=== PATIENT | female | born 1975 | race Hispanic/Latino ===

== ENCOUNTER 2017-11-05 08:59 | Outpatient (CLI) | payer OTHER | END 2017-11-05 09:00 | disposition home or self-care (01) | LOC: BICMAMMO 08:59 | PROVIDERS: ATTEND Obstetrics & Gynecology | DX: Z12.31 Encounter for screening mammogram for malignant neoplasm of breast (principal) | CPT/HCPCS: 77063; 77067 ==

== ENCOUNTER 2018-04-04 13:35 | Outpatient (CLI) | payer OTHER ==
[2018-04-04 15:20] LABS: Hemoglobin 12.7 g/dL (12.0-16.0); Mean Corpuscular HGB CONC 33.6 g/dL (32.0-36.0); Mean Corpuscular Hemoglobin 27.6 pg (27.0-31.0); Mean Corpuscular Volume 82.3 fL (78.0-98.0); Mean Platelet Volume 9.9 fL (7.4-10.4); Platelet Count 198 thou/uL (130-400); White Blood Cell (WBC) Count 5.9 thou/uL (4.8-10.8)
[2018-04-04 15:33] LABS: BHCG - Serum Negative (NEGATIVE); Pregs Control Background? CLEAR/WHITE (CLR/WHITE); Pregs Control Bar Appear? YES (CONTROL BAR)
== END 2018-04-04 13:36 | disposition home or self-care (01) ==
LOC: LABBT 13:35
PROVIDERS: ATTEND Obstetrics & Gynecology
DX: Z01.812 Encounter for preprocedural laboratory examination (principal); N94.6 Dysmenorrhea, unspecified; N39.3 Stress incontinence (female) (male); N93.9 Abnormal uterine and vaginal bleeding, unspecified
CPT/HCPCS: 84703; 85027; 86850; 86900; 86901

== ENCOUNTER 2018-04-07 05:53 | Day surgery (SDC) | payer OTHER ==
[2018-04-04 14:05] VITALS: BMI 35.1
[2018-04-07] MEDS ORDERED: Famotidine/PF 20 mg/2ml Vial ONE (06:14)
[2018-04-07] MEDS ORDERED: CeleCOXIB 100 MG CAP ONE (06:15)
[2018-04-07] MEDS ORDERED: Gabapentin 300 MG CAP ONE (06:16)
[2018-04-07] MEDS ORDERED: CEFAZOLIN/Water 2 GM/20 ML SYRINGE ONE (06:16)
[2018-04-07] MEDS ORDERED: Bupivacaine HCl 0.5%/Epinephrine 1:200,000/PF 30 ml Vial ONE (06:29)
[2018-04-07] MEDS ORDERED: Lidocaine 1% w/Epinephrine 1:100K 30 ML VIAL ONE (06:29)
[2018-04-07] MEDS ORDERED: Fentanyl 100 MCG/2 ML VIAL ONE ×2 (06:36→10:10)
[2018-04-07] MEDS ORDERED: Midazolam HCl 2 mg/2 ml Vial ONE (07:02)
[2018-04-07] MEDS ORDERED: Meperidine HCl/PF 25 MG/ML VIAL SLOW IVP PRN (09:30)
[2018-04-07] MEDS ORDERED: Promethazine HCl 25 MG/ML VIAL IM PRN ×2 (09:30→10:03)
[2018-04-07] MEDS ORDERED: Promethazine HCl 25 MG/ML VIAL SLOW IVP PRN (09:30)
[2018-04-07] MEDS ORDERED: Ondansetron HCl/PF 4 MG/2 ML Vial IVP PRN ×2 (09:30→10:03)
[2018-04-07] MEDS ORDERED: HYDROmorphone 2 MG/ML VIAL SLOW IVP PRN (09:30)
[2018-04-07] MEDS ORDERED: Ibuprofen 800 MG TAB PO PRN (09:31)
[2018-04-07] MEDS ORDERED: Morphine 4 MG/ML VIAL SLOW IVP PRN (10:03)
[2018-04-07] MEDS ORDERED: HYDROcodone/Acetaminophen 5/325 mg Tablet PO PRN (10:03)
[2018-04-07] MEDS ORDERED: diphenhydrAMINE 25 MG CAP PO PRN (10:03)
[2018-04-07] MEDS ORDERED: Bisacodyl 10 MG SUPP PR PRN (10:03)
[2018-04-07] MEDS ORDERED: Simethicone Chewable 80 MG TAB PO PRN (10:03)
[2018-04-07] MEDS ORDERED: Ropivacaine 0.2% 550 ML 550 ML NERVE BLCK SCH (10:11)
--- NOTE | 2018-04-07 10:52 | OP ---
DATE OF PROCEDURE: 04/07/2018 PREOPERATIVE DIAGNOSES: 1. Abnormal uterine bleeding. 2. Uterine fibroids. 3. History of anemia. 4. Uncomplicated stress urinary incontinence. POSTOPERATIVE DIAGNOSES: 1. Abnormal uterine bleeding. 2. Uterine fibroids. 3. History of anemia. 4. Uncomplicated stress urinary incontinence. PROCEDURE: 1. Robotic-assisted total laparoscopic hysterectomy with bilateral salpingectomy. 2. Advantage Fit retropubic midurethral sling. 3. Cystoscopy. SURGEON: Monica Mejia D.O. CRANKSHAFT STRAIGHTENER: Maddi Joshi M.D. ANESTHESIA: General. COMPLICATIONS: None. ESTIMATED BLOOD LOSS: 50 mL. URINE OUTPUT: 600 mL. FINDINGS: Normal external genitalia, normal vaginal and cervical epithelium, enlarged fibroid uterus approximately 12 cm. Normal appearing bilateral fallopian tubes and ovaries, normal bladder mucosa without evidence of perforation, bilateral ureteral peristalsis and efflux. INDICATIONS FOR THE PROCEDURE: Ms. Maxine Griffiths is a 42-year-old who presented to clinic with a longstanding history of abnormal uterine bleeding secondary to 5 cm intramural uterine fibroid. The patient underwent an endometrial biopsy with benign pathology and her Pap smear was also normal. The patient was counseled on treatment options and she had failed medical therapy previously and desired definitive surgical treatment and was planned for a robotic assisted total laparoscopic hysterectomy. The patient preferred ovarian conservation. The patient also had symptoms of uncomplicated stress urinary incontinence and was counseled on treatment options, she elected to have surgical treatment with a retropubic mid urethral sling. The patient was counseled on risks, benefits, alternatives, and indications for each procedure. PROCEDURE IN DETAIL: The patient was brought to the operating room and she was placed under general anesthesia. The patient was placed in dorsal lithotomy position using Phil stirrups. She was prepped and draped in the sterile fashion. An official timeout was performed. She was given Ancef for surgical prophylaxis. A single-sided speculum was placed in the vagina. Anterior aspect of the cervix was grasped using single tooth tenaculum and the cervix was sequentially dilated. The uterus was sounded to approximately 12 cm. A PRINCESS uterine manipulator was inserted using a 12 cm length and 4 cm cup and was appropriately secured to the ectocervix. The Miller catheter was placed. The bladder was completely drained. Gloves were exchanged and attention was turned to the abdominal portion. A supraumbilical abdominal incision was made and the Veress needle was placed into the peritoneal cavity noting a normal pressure. The peritoneal cavity was insufflated using carbon dioxide. The 12 mm trocar was then inserted. The patient was placed in Trendelenburg position. The anatomy was evaluated, noting the findings above. Additional assistant restaurant general manager ports were placed, 2 ports placed on the right aspect of the abdomen and 1 placed on the left. All were placed using local anesthetic and under direct visualization. The robot was then appropriately docked to the patient and the robotic instruments were inserted using a monopolar scissors and bipolar fenestrated forceps. Hysterectomy was begun on the left aspect, the left salpingectomy was performed working distally to proximally removing the entire fallopian tube. The round ligament was then coagulated and transected. The broad ligament was then entered, the anterior aspect of the broad ligament was undermined and transected to allow inferior reflection of the bladder, the utero-ovarian vessels were then coagulated and transected. The posterior leaf of the peritoneum was then undermined and transected down towards the level of the uterosacral ligament. The left uterine vessels were skeletonized. Attention was turned over to the right aspect of the hysterectomy. The right salpingectomy was performed working distally to proximally. The right round ligament was then coagulated and transected allowing entrance into the broad ligament on the right aspect. The anterior leaf of the broad ligament was undermined and transected allowing anterior reflection of the bladder on the right side as well. The right utero-ovarian ligament was then coagulated multiple times and transected. The posterior leaf of the peritoneum was undermined and transected down towards the level of the uterosacral ligament. The course of the right ureter was identified prior to this portion. The course of the left ureter was difficult to fully evaluate. The bladder dissection was performed anteriorly using meticulous dissection. The right uterine vessels were coagulated multiple times and transected creating hemostasis. Attention was turned over to the left aspect, the left uterine vessels were also coagulated multiple times and transected creating hemostasis. The colpotomy was then performed in circumferential fashion until the cervical and vaginal tissue were . The uterus and cervix were then delivered vaginally and the PRINCESS manipulator was also removed. The pelvis was irrigated and cleared of all clot and debris. The vaginal cuff was closed in a running fashion using 1 Stratafix suture. The vaginal cuff was hemostatic after closure, it did require some areas of coagulation along the cuff for hemostasis. The pelvis was again irrigated and cleared of all clot and debris. All pedicle sites and the vaginal cuff were evaluated and hemostatic and the pressure was decreased also noting hemostasis. The ON-Q pump was then inserted and placed in the pelvic cavity. The instruments were then removed. The robot was undocked from the patient. The patient was taken out of Trendelenburg position. The abdomen was deflated and the trocars were removed. The midline supraumbilical port was closed using 0 Vicryl on the fascia and the skin was closed using 4-0 Vicryl and Dermabond. Attention was then turned down to the vaginal portion. The sites for the sling were marked 2 cm lateral and just above the pubic symphysis. The vaginal epithelium was then grasped using Allis clamps and lidocaine with epinephrine was injected at the incision site for the sling. A small incision was made approximately 1-2 cm below the urethra and 1-2 cm in length. Metzenbaum scissors were then used to dissect the plane of the direction of the retropubic sling. The guidewire catheter was then placed within the Miller. The Advantage Fit sling was then performed first on the patient's right aspect, careful to hug the guidance needle around the pubic symphysis, perforating the skin just where it was marked above the pubic symphysis and then the left side of the sling was also placed using the same technique. The needle was then removed. A cystoscopy was performed noting no perforation or damage to the bladder and bilateral ureteral efflux. The sleeves of the sling were then pulled with tension until the sling was approximated to the urethra. A Centeno scissors was used to prevent over tightening of the sling. The plastic guides were then removed and the sling was cut at the level of skin. The vaginal epithelium was closed in a running fashion using 3-0 Vicryl. The miller was placed. The vagina was evaluated and noted to be hemostatic. The patient was then placed back in supine position. She was extubated without difficulty and transferred to recovery in hemodynamically stable condition. There were no complications and the patient tolerated the procedure well. All counts were correct x2. MTDD
[2018-04-07] MEDS: Lactated Ringer's 1,000 ML IV SCH ×2 (11:51→19:15)
[2018-04-07] MEDS: Ibuprofen 800 MG TAB PO SCH ×2 (14:16→21:34)
[2018-04-07] MEDS: HYDROcodone/Acetaminophen 5/325 mg Tablet PO PRN ×3 (14:16→22:34)
[2018-04-07 20:44] VITALS: TEMP 97.9
[2018-04-08] MEDS: Ibuprofen 800 MG TAB PO SCH (05:29)
[2018-04-08] MEDS: Lactated Ringer's 1,000 ML IV SCH (05:36)
[2018-04-08 05:51] LABS: #Lymphocytes 1.2 thou/uL (1.20-3.40); #Monocytes 0.5 thou/uL (0.11-0.59); #Neutrophils 8.4 thou/uL (1.40-6.50); %Basophils 0.2 % (0.0-1.0); %Eosinophils 0.1 % (0.0-10.0); %Lymphocytes 12.2 % (21.0-51.0); %Monocytes 5.3 % (0.0-10.0); %Neutrophils 82.2 % (42.0-75.0); Hemoglobin 11.2 g/dL (12.0-16.0); Mean Corpuscular Hemoglobin 27.2 pg (27.0-31.0); Mean Corpuscular Volume 82.3 fL (78.0-98.0); Mean Platelet Volume 9.7 fL (7.4-10.4); Platelet Count 179 thou/uL (130-400); RBC Distribution Width 13.8 % (11.5-14.5); Red Blood Cell (RBC) Count 4.12 mill/uL (4.20-5.40); White Blood Cell (WBC) Count 10.2 thou/uL (4.8-10.8)
[2018-04-08 06:01] LABS: ALT (SGPT) 11 U/L (8-55); AST (SGOT) 10 U/L (5-34); Albumin 3.4 g/dL (3.5-5.0); Alkaline Phosphatase 59 U/L (40-150); Anion Gap 10 mmol/L (10-20); BUN (Urea Nitrogen) 7 mg/dL (7.0-18.7); Bilirubin, Total 0.8 mg/dL (0.2-1.2); Calc. Creatinine Clearance 133 mL/min (70-130); Calcium 8.5 mg/dL (7.8-10.44); Carbon Dioxide 23 mmol/L (22-29); Chloride 108 mmol/L (98-107); Estimated GFR-MDRD 80; Globulin 2.6 g/dL (2.4-3.5); Glucose 120 mg/dL (70-105); Potassium 3.8 mmol/L (3.5-5.1); Sodium 137 mmol/L (136-145)
--- NOTE | 2018-04-08 11:22 | PRG ---
DATE OF SERVICE: 04/08/2018 HPI: Postoperative day #1, status post robotic-assisted total laparoscopic hysterectomy with bilateral salpingectomy, Retropubic Advantage Fit, mid urethral sling, and cystoscopy SUBJECTIVE: The patient reports [id number] pain, controlled with oral pain medications. She is passing flatus, tolerating oral intake, and ambulating without difficulty. The patient had a Charles catheter replaced yesterday evening due to continued urinary retention after her surgery. Otherwise, denies any complaints. OBJECTIVE: VITAL SIGNS: Stable. GENERAL: In no acute distress. CARDIOVASCULAR: Regular rate and rhythm. RESPIRATORY: Unlabored breathing. ABDOMEN: Soft and mild distention with appropriate tenderness to palpation. Incisions clean, dry, and intact with Dermabond in place and ON-Q appropriately secured. Normal active bowel sounds times all 4 quadrants. EXTREMITIES: Negative Homans' and negative edema. LABORATORY DATA: Normal hemoglobin and creatinine. Please see laboratory results. ASSESSMENT: Postoperative day #1 status post robotic-assisted total laparoscopic hysterectomy with a bilateral salpingectomy, midurethral sling, and cystoscopy with transient urinary retention. PLAN: We will perform an additional voiding trial this morning with backfilling the bladder and assessing voided urine. She is, otherwise, meeting all requirements for discharge. We will plan to discharge today. QUOC
[2018-04-08 13:32] VITALS: BP 118/70
--- NOTE | 2018-04-09 06:57 | DIS ---
DATE OF ADMISSION: 04/07/2018 DATE OF DISCHARGE: 04/08/2018 ADMISSION AND DISCHARGE PHYSICIAN: Monica Mejia D.O. ADMISSION DIAGNOSIS: Postoperative pain control status post robotic assisted total laparoscopic hyst erectomy with a bilateral salpingectomy and retropubic mid urethral sling and cystoscopy. DISCHARGE DIAGNOSES: Postoperative pain control status post robotic assisted total laparoscopic hyst erectomy with a bilateral salpingectomy, retropubic mid urethral sling and cystoscopy. BRIEF HOSPITAL COURSE: Ms. Griffiths is postoperative day #1, status post robotic assisted total lapar oscopic hysterectomy with a bilateral salpingectomy, retropubic mid urethral sling and cystoscopy for treatment of abnormal uterine bleeding due to uterine fibroids and stress urinary incontinence. The patient's intraoperative and postoperative course have been benign with the exception of a transient urinary retention which has resolved on postoperative day #1. She has passed a voiding trial. Her vital signs are stable. Her laboratory evaluation is within normal limits. She was meeting all requ irements for discharge including voiding, ambulating, tolerating an oral diet, passing flatus and her pain is controlled with oral medications. FOLLOWUP: Follow up in 2 weeks. ACTIVITY RESTRICTIONS: Pelvic rest, no heavy lifting, pushing or pulling for 6 weeks. MEDICATIONS: 1. [place] 5/325 one tablet every 6 hours p.r.n. pain, #30 tablets. 2. Motrin 800 mg 1 tablet every 8 hours p.r.n. pain, #60 tablets. DIET: General. CODE: FULL.
[2018-04-14] MEDS ORDERED: Ergocalciferol 1.25 MG(50,000 UNITS) CAP PO SCH (09:00)
== END 2018-04-08 12:38 | disposition home or self-care (01) ==
LOC: SDC 05:53 → EDSTATUS 10:00 → 3SE 11:16 → SDC 04-08 12:38
PROVIDERS: ATTEND Obstetrics & Gynecology
PROC: 0UT94ZZ Resection of Uterus, Percutaneous Endoscopic Approach (ICD-10-PCS; principal; 2018-04-08)
PROC: 0UT74ZZ Resection of Bilateral Fallopian Tubes, Percutaneous Endoscopic Approach (ICD-10-PCS; principal; 2018-04-08)
PROC: 0TSD0ZZ Reposition Urethra, Open Approach (ICD-10-PCS; principal; 2018-04-08)
DX: D25.2 Subserosal leiomyoma of uterus (principal); N88.8 Other specified noninflammatory disorders of cervix uteri; N39.3 Stress incontinence (female) (male); G89.18 Other acute postprocedural pain; Z79.899 Other long term (current) drug therapy; Z87.891 Personal history of nicotine dependence
CPT/HCPCS: 36415; 51798; 80053; 85025; 88307; 96374; 96375; 96376; A4306; C1781; J0131; J0670; J2001; J2250; J2270; J2795; J3010; Q9968; S0028

== ENCOUNTER 2018-11-11 12:10 | Outpatient (CLI) | payer BC ==
--- NOTE | 2018-11-11 12:46 | MMO ---
Bilateral MAMMO Bilat Screen [facility]. CLINICAL HISTORY: Patient is 42 years old and is seen for screening. The patient has no family history of breast cancer. The patient has no personal history of cancer. VIEWS: The views performed were: bilateral craniocaudal with tomosynthesis and bilateral mediolateral oblique with tomosynthesis. FILMS COMPARED: The present examination has been compared to a prior imaging study performed at [facility] on 11/05/2017. MAMMOGRAM FINDINGS: There are scattered fibroglandular densities. There is a round mass with circumscribed margins seen in the upper-inner region of the right breast. In the left breast, there are no suspicious masses, calcifications or areas of architectural distortion. IMPRESSION: MASS IN THE RIGHT BREAST REQUIRES ADDITIONAL EVALUATION. AN ULTRASOUND EXAM IS RECOMMENDED. THE RESULTS OF THIS EXAM WERE SENT TO THE PATIENT. ACR BI-RADS Category 0 - Incomplete: Need additional imaging evaluation. [facility] will notify the patient of the need for additional imaging services. MAMMOGRAPHY NOTE: 1. A negative mammogram report should not delay a biopsy if a dominant of clinically suspicious mass is present. 2. Approximately 10% to 15% of breast cancers are not detected by mammography. 3. Adenosis and dense breasts may obscure an underlying neoplasm.
== END 2018-11-11 12:11 | disposition home or self-care (01) ==
LOC: BICMAMMO 12:10
PROVIDERS: ATTEND Family Medicine
DX: Z12.31 Encounter for screening mammogram for malignant neoplasm of breast (principal); N63.10 Unspecified lump in the right breast, unspecified quadrant
CPT/HCPCS: 77063; 77067

== ENCOUNTER 2018-11-20 14:48 | Outpatient (CLI) | payer BC ==
--- NOTE | 2018-11-20 15:41 | ULT ---
SONOGRAM RIGHT BREAST LIMITED: HISTORY: Focal asymmetric nodule right breast. COMPARISON: Prior mammograms from 11/11/2018 and 11/05/2017. FINDINGS: Sonographic evaluation of the superior medial aspect of the right breast in the region of mammographi c concern on recent screening exam was performed. Scattered fibroglandular densities are present. N o solid or cystic masses. No suspicious shadowing. Review of the tomographic images from the previous screening exams was made. No spiculation or relia daniel demonstrated suspicious finding. The area of in question is similar on the current tomographic i mages to the previous exam. IMPRESSION: No evidence of underlying mass within the right breast in the region of concern on the screening mamm ogram. BIRADS category 2. Benign findings. Suggest routine mammographic followup. POS: GIOVANNY
== END 2018-11-20 14:49 | disposition home or self-care (01) ==
LOC: BICULT 14:48
PROVIDERS: ATTEND Family Medicine
DX: N63.12 Unspecified lump in the right breast, upper inner quadrant (principal)

== ENCOUNTER 2020-11-25 09:03 | Outpatient (CLI) | payer BC | END 2020-11-25 09:04 | disposition home or self-care (01) | LOC: BICMAMMO 09:03 | PROVIDERS: ATTEND Family Medicine | DX: Z12.31 Encounter for screening mammogram for malignant neoplasm of breast (principal); Z80.3 Family history of malignant neoplasm of breast | CPT/HCPCS: 77063; 77067 ==

== ENCOUNTER 2022-09-19 15:31 | Outpatient (CLI) | payer BC | END 2022-09-19 15:32 | disposition home or self-care (01) | LOC: BICRAD 15:31 | PROVIDERS: ATTEND Internal Medicine Rheumatology | DX: M46.1 Sacroiliitis, not elsewhere classified (principal); Z87.19 Personal history of other diseases of the digestive system | CPT/HCPCS: 72202 ==

== ENCOUNTER 2023-02-21 11:18 | Outpatient (CLI) | payer BC | END 2023-02-21 11:19 | disposition home or self-care (01) | LOC: BICMAMMO 11:18 | PROVIDERS: ATTEND Family Medicine | DX: Z12.31 Encounter for screening mammogram for malignant neoplasm of breast (principal) | CPT/HCPCS: 77063; 77067 ==